=== PATIENT | male | born 1990 | race Caucasian/White ===

== ENCOUNTER 2016-11-16 12:17 | Emergency (ER) | payer OTHER ==
[2016-11-16] MEDS ORDERED: SILVER SULFADIAZINE 1% CREAM 50 GM TP ONE (12:21)
[2016-11-16] MEDS ORDERED: OXYCODONE-ACETAMINOPHEN 5-325 MG TABLET PO ONE (12:21)
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
[2016-11-16] MEDS ORDERED: ONDANSETRON ODT 4 MG TAB (6 TAB/DSPK) PO PRN (13:33)
== END 2016-11-16 13:15 | disposition home or self-care (01) ==
LOC: ER 12:17
DX: T23.272A Burn of second degree of left wrist, initial encounter (principal); X16.XXXA Contact with hot heating appliances, radiators and pipes, initial encounter
CPT/HCPCS: 99283; J3490